=== PATIENT | male | born 1965 | race Caucasian/White ===

== ENCOUNTER 2017-11-04 22:04 | Emergency (ER) | payer BC, OTHER ==
[~2017-11-04 22:04] MED LIST: CYCL-36 PO
[2017-11-04 22:11] VITALS: BP 141/76; PULSE 80; RESP 20; TEMP 88.1; O2SAT 98
--- NOTE | 2017-11-04 23:31 | PD ---
HPI Chief Complaint: Musculoskeletal Complaint Time Seen by Provider: 23:25 Travel History International Travel<30 days: No Contact w/Intl Traveler<30days: No Traveled to known affect area: No History of Present Illness HPI 52-year-old male presents to the emergency department for complaint of 4 weeks of left ankle pain. Patient states that he was seen by his orthopedist 2 weeks ago and x-ray was performed revealed no acute abnormality and he was encouraged to follow up as needed and to perform home physical therapy exercises. Patient presents now stating that his symptoms have not improved in fact he feels like his symptoms have worsened. Patient is used [id number] ibuprofen without relief. Patient's continue to work while having ankle pain. This evening noticed some mild swelling over the left lateral malleolus. Patient denies any known injury. Patient has had no injury since imaging studies were performed 2 weeks ago. Patient has not contacted his orthopedic surgeon. Patient denies known history of gouty arthritis. Patient's had no significant swelling ascending erythema fever chills. Patient has not noticed any worsening symptoms with exertion or elevation symptoms are isolated to the ankle and not extending into the lower leg. [facility] Past Medical History Narrative Medical Anxiety valvulectomy alcohol use; nursing notes reviewed Anxiety: Yes (NON-COMPLIANT WITH MEDICATION) Tetanus Vaccination: < 5 Years Influenza Vaccination: Yes Past Surgical History Other Surgery: Yes (VASECTOMY) Social History Alcohol Use: Yes (OCCASIONAL) Tobacco Use: No Substance Use: No Allergies-Medications (Allergen,Severity, Reaction): Coded Allergies: codeine (Verified Adverse Reaction, Severe, N/V, 11/04/17) Reported Meds & Prescriptions Reported Meds & Active Scripts Active Narrative Medication Ibuprofen as needed Review of Systems Except as stated in HPI: all other systems reviewed are Neg General / Constitutional: No: Fever, Chills HENT: No: Congestion Cardiovascular: No: Chest Pain or Discomfort Respiratory: No: Shortness of Breath, Pleuritic Pain Gastrointestinal: No: Abdominal Pain Genitourinary: No: Flank Pain Musculoskeletal: Positive: Pain Skin: No Rash Neurologic: No: Weakness (Left ankle) Psychiatric: No: Anxiety Hematologic/Lymphatic: No: Lymph Node Enlargement Physical Exam Narrative GENERAL: Well-developed well-nourished male no acute distress or respiratory distress SKIN: Warm and dry. MUSCULOSKELETAL: No cyanosis, or edema. Minimal soft tissue swelling over the left lateral malleolus no point tenderness to palpation no redness no increased warmth no pallor no coolness dorsalis pedis pulse is 2+ to palpation and capillary refill is brisk and less than 2 seconds per digit. No ecchymosis no abrasion no puncture wound no laceration no deformity approximately no Homans sign no palpable posterior calf cording normal Achilles tendon response to provocative testing. Data Data Last Documented VS Vital Signs Date Time Temp Pulse Resp B/P (MAP) Pulse Ox O2 Delivery O2 Flow Rate FiO2 11/04/17 23:50 11/04/17 23:38 98.3 72 18 99 Room Air Orders Orders Ed Discharge Order (11/04/17 23:25) MDM Medical Decision Making Medical Screen Exam Complete: Yes Emergency Medical Condition: Yes Medical Record Reviewed: Yes Differential Diagnosis Sprain strain tendinitis arthritis gouty arthritis plantar fasciitis; no findings or history for septic arthritis Narrative Course Discussed repeat imaging, CT or blood work with patient declines imaging or blood work at this time and no clear indication for repeat imaging as no reinjury since initial imaging by orthopedist and no indication for blood work at this time is afebrile vital signs stable and no findings to support concern for septic joint. Recommend conservative management and return follow-up with his orthopedist Diagnosis Primary Impression: Ankle pain, left Qualified Codes: M25.572 - Pain in left ankle and joints of left foot Referrals: Sharif Molina MD call for appointment Patient Instructions: General Instructions Additional Instructions: Apply Dank wrap or preformed Dank ankle support to provide some stability to the left ankle as needed Ibuprofen 600 mg may be taken as often as every 6-8 hours as needed for pain Associates inflammation or maximum dose of 800 mg of ibuprofen every 8 hours for pain associated with inflammation Elevate left ankle Wear supportive boot or shoe Follow-up with your orthopedist Dr. Molina call office in a.m. to schedule follow-up appointment Return to the emergency department for any concerns or change in condition Disposition: 01 DISCHARGE HOME Condition: Stable Diamond Romeo MD Nov 04, 2017 23:31
[2017-11-04 23:38] VITALS: BP 125/83; PULSE 72; RESP 18; TEMP 98.3; O2SAT 99
== END 2017-11-04 23:52 | disposition home or self-care (01) ==
LOC: PHEFT 22:04
DX: M25.572 Pain in left ankle and joints of left foot (principal); Z88.5 Allergy status to narcotic agent
CPT/HCPCS: 99282